=== PATIENT | female | born 1940 | race Caucasian/White ===

== ENCOUNTER 2016-05-20 06:39 | Day surgery (SDC) | payer MEDICARE ==
[2016-05-20] VITALS (7 sets, daily range): BP systolic 166–190; BP diastolic 70–79; PULSE 56–77; RESP 16–20; TEMP 97.9–98; O2SAT 90–99
[~2016-05-20] VITALS: Ht 180.3 cm; Wt 93.2 kg
[2016-05-20] MEDS ORDERED: SODIUM CHLOR 0.9% 1000 ML INJ 1,000 ML IV SCH (07:00)
[2016-05-20] MEDS ORDERED: ASPI1TAB69 PO (07:06)
[2016-05-20] MEDS ORDERED: LANTINJ SQ (07:06)
[2016-05-20] MEDS ORDERED: CALCTAB33 PO (07:06)
[2016-05-20] MEDS ORDERED: NOVOINJ3 SQ (07:06)
[2016-05-20] MEDS ORDERED: METF500T PO (07:06)
[2016-05-20] MEDS ORDERED: QUIN20TA2 PO (07:06)
[2016-05-20] MEDS ORDERED: PANT40TA3 PO (07:06)
[2016-05-20] MEDS ORDERED: CENTTAB PO (07:06)
[2016-05-20] MEDS ORDERED: ROSU40 PO (07:06)
[2016-05-20 07:45] LABS: AUTOMATED NEUTROPHIL # 4.2 TH/MM3 (1.8-7.7); BASOPHIL % 0.8 % (0.0-2.0); EOSINOPHIL # 0.1 TH/MM3 (0-0.4); EOSINOPHIL % 2.4 % (0.0-4.0); HEMATOCRIT 36.2 % (35.0-46.0); HEMO FLAGS DIFF FINAL; LYMPH % 20.1 % (9.0-44.0); LYMPHOCYTE # 1.2 TH/MM3 (1.0-4.8); MEAN CELL VOLUME 87.7 FL (80.0-100.0); MEAN CORPUSCULAR HEMOGLOBIN 29.7 PG (27.0-34.0); MEAN CORPUSCULAR HGB CONC 33.9 % (32.0-36.0); MONO % 9.4 % (0.0-8.0); NEUT % 67.3 % (16.0-70.0); PLATELET COUNT 200 TH/MM3 (150-450); RED BLOOD COUNT 4.12 MIL/MM3 (4.00-5.30); RED CELL DISTRIBUTION WIDTH 14.5 % (11.6-17.2); WHITE BLOOD COUNT 6.2 TH/MM3 (4.0-11.0)
[2016-05-20 07:54] LABS: APTT (PATIENT) 25.7 SEC (24.3-30.1); PROTHROMBIN TIME - PATIENT 10.5 SEC (9.8-11.6)
--- NOTE | 2016-05-20 08:35 | PD.RAD ---
Post Procedure Progress Note Pre Procedure Diagnosis: (1) Upper extremity weakness (2) Lower extremity weakness Post Procedure Diagnosis: (1) Lower extremity weakness (2) Upper extremity weakness Procedure Date: May 20, 2016 Supervising Radiologist: Peter Myers Estimated blood loss: None Anesthesia: Local Plan of Activity Patient to Unit: ROPU Patient Condition: Good Additional Comments: LP completed without difficulty. Single puncture at L4/L5. 22 CC of clear CSF removed and sent to lab. See PACS Report for procedural detail/treatment Peter Myers MD May 20, 2016 08:35
--- NOTE | 2016-05-20 09:48 | RADRPT ---
EXAM DATE/TIME: 05/20/2016 07:18 [place] COMPARISON: No previous studies available for comparison. INDICATIONS : Patient with lower extremity weakness MEDICAL HISTORY : skin cancer,inflammatory demyelinating polyradiculoneuropathy,spondolysis SURGICAL HISTORY : Carotid endarectomy, hysterectomy,rt hip , rt rotator cuff ENCOUNTER: Initial ACUITY: 1 year PAIN SCORE: 0/10 LUMBAR PUNCTURE TIME: 0824 hours FLUORO TIME: 07 minutes IMAGE SERIES: 0 ACCESS LEVEL: L4-5 FLUID: 22 cc of clear CSF was collected and sent to the laboratory for analysis. PROCEDURE : 1. Fluoroscopic guided lumbar puncture. The risks, benefits and alternatives to the procedure were explained and verbal and written consent w as obtained. The site was prepped in sterile fashion. Full sterile technique was used, including ca p, mask, sterile gloves and gown and a large sterile sheet. Hand hygiene and 2% chlorhexidine and/or betadine/alcohol prep was utilized per protocol for cutaneous antisepsis. The skin and subcutaneous tissues were infiltrated with local anesthetic solution. With fluoroscopic guidance the lumbar thecal sac was punctured at the level above. The fluid describ ed above was removed without difficulty. The patient tolerated the procedure well and there were no complications. CONCLUSION: Uncomplicated fluoroscopically guided lumbar puncture. Peter Myers MD on May 20, 2016 at 9:46 Board Certified Radiologist. This report was verified electronically.
[2016-05-20 10:03] LABS: CSF NEUTROPHILS 0 %; GROSS BLOOD TUBE #1 0 (0); GROSS BLOOD TUBE #2 0 (0); GROSS BLOOD TUBE #3 0 (0); GROSS BLOOD TUBE #4 0 (0); SUPERNATE COLOR TUBE #1 CLEAR (CLEAR); SUPERNATE COLOR TUBE #2 CLEAR (CLEAR); SUPERNATE COLOR TUBE #3 CLEAR (CLEAR); SUPERNATE COLOR TUBE #4 CLEAR (CLEAR); VOLUME TUBE # 1 4.5 ML; WBC TUBE #1 2 /MM3 (0-10)
[2016-05-20 10:05] LABS: GROSS BLOOD TUBE #4 0 (0); SUPERNATE COLOR TUBE #4 CLEAR (CLEAR)
[2016-05-20 10:08] LABS: CSF LYMPHOCYTES 0 %; CSF MONOCYTES 0 %; CSF NEUTROPHILS 0 %; WBC TUBE #4 0 /MM3 (0-10)
[2016-05-21 08:42] LABS: CSF LYMPHOCYTES 50 %; CSF MONOCYTES 50 %
[2016-05-23 08:58] LABS: CSF CRYPTOCOCCUS AG CONF ND (NOT DETECTD)
== END 2016-05-20 11:20 | disposition home or self-care (01) ==
LOC: HROP 06:39 → HRIP 06:43 → HROP 11:20
PROVIDERS: ATTEND Specialist
DX: R53.1 Weakness (principal); I10 Essential (primary) hypertension; E11.9 Type 2 diabetes mellitus without complications; Z85.828 Personal history of other malignant neoplasm of skin; Z90.710 Acquired absence of both cervix and uterus
CPT/HCPCS: 62270; 77003; 82945; 84157; 85025; 85610; 85730; 86403; 87015; 87070; 87102; 87116; 87205; 87206; 89051